=== PATIENT | male | born 1995 | race Caucasian/White ===

== ENCOUNTER 2023-03-03 06:56 | Day surgery (SDC) | payer OTHER, SELFPAY ==
[2023-03-03 07:09] VITALS: BMI 24.4
[2023-03-03 07:16] VITALS: BP 143/87; PULSE 78; RESP 17; TEMP 36.4; O2SAT 99
[2023-03-03] MEDS: LACTATED RINGERS 1,000 ML 42 ML IV (07:19)
--- NOTE | 2023-03-03 07:50 | P.HP_ITS ---
History of Present Illness History of Present Illness Date Patient Seen: 03/03/23 Time Patient Seen: 08:00 Chief complaint: SDC Narrative: I reviewed the recent office note by Jerel Ignacio. No significant changes. The patient denies chronic diarrhea. [facility] Social History household members: other Smoking Status: Never smoker Meds Home Medications and Allergies Home Medications Medication Instructions Recorded Confirmed Type finasteride 1 mg tablet 1 mg PO DAILY 03/03/23 03/03/23 History minoxidil 2.5 mg tablet 2.5 mg PO DAILY 03/03/23 03/03/23 History Allergies Allergy/AdvReac Type Severity Reaction Status Date / Time No Known Drug Allergies Allergy Verified 03/03/23 07:07 Review of Systems Review of Systems ROS: Yes All systems reviewed with the patient and are negative except as otherwise documented Exam Vital Signs (past 8 hours): - 03/03/23 07:16 Temperature 97.6 F Pulse Rate 78 Respiratory Rate 17 Blood Pressure 143/87 H Pulse Oximetry 99 Oxygen Delivery Method Room Air Oxygen Delivery Method Room Air Const General: cooperative HENMT Head: normal to inspection Eyes General: appearance normal, both eyes and all related structures Neck Neck: normal visual inspection Chest Chest: normal inspection of the chest Resp Effort & Inspection: normal respiratory effort Cardio Rate: regular rate GI Inspection: normal to inspection Skin General: no rashes or lesions noted Neuro General: patient alert and patient awake Extrem General: normal to inspection and no pedal edema Psych Appearance: grossly normal Assessment & Plan Assessment & Plan narrative: 28-year-old male with a family history of colon cancer and a remote history of rectal bleeding. He has a small amount of blood on the toilet tissue still at times. Colonoscopy is planned for.
--- NOTE | 2023-03-03 08:01 | PM.PREOP ---
Pre-operative Note Interval Note History & Physical reviewed/Exam performed by Physician: Yes Changes to H&P: No ASA Class (for procedural sedation): I
--- NOTE | 2023-03-03 08:22 | PM.OP.COLON ---
Operative Date/Time/Diagnoses Date of procedure: 03/03/23 Time of procedure: 08:23 Pre-op diagnosis: Rectal bleeding and a family history of colon cancer. Post-op diagnosis: same Procedure & Clinicians Study performed: Colonoscopy Same procedure as scheduled: Yes Indications: Rectal bleeding family history of colon cancer Surgeon: Mejia Bella Procedure Notes SCOAP/Timeout: Done Procedure in detail: After the risks and benefits were explained, written and verbal informed consent was obtained. The patient was brought into the procedure room and placed into the left lateral decubitus position. Please see anesthesia notes for sedation details. Digital rectal examination was accomplished. The scope was introduced into the patient and advanced under direct visualization to the cecum as identified by the appendiceal orifice and ileocecal valve. The scope was slowly withdrawn to carefully examine the mucosa for any defects or lesions. Comprehensive imaging was accomplished throughout the rectum including the dentate line. The colon was decompressed, the scope was then removed from the patient who tolerated the procedure well. Adult colonoscope Bowel prep adequate Scope withdrawal time: 9 minutes Sedation minutes: 15 Specimen(s): none sent Complications: none Impression: Digital rectal examination was within normal limits. No proctitis no colitis throughout. No polyps or mass lesions. The terminal ileum was interrogated and appeared normal. Endoscopic diagnosis Visually normal colonoscopy Post-procedure Plan for aftercare: Repeat colonoscopy at age 40 considering family history. Disposition: PACU
[2023-03-03 08:26] VITALS: BP 88/49; PULSE 62; RESP 16; TEMP 36.2; O2SAT 98
[2023-03-03 08:34] VITALS: BP 103/59; PULSE 66; RESP 16; O2SAT 98
[2023-03-03 08:39] VITALS: BP 108/68; PULSE 77; RESP 16; TEMP 36.2; O2SAT 98
[2023-03-03 08:41] VITALS: BP 105/77; PULSE 65; RESP 16; TEMP 36.2; O2SAT 100
== END 2023-03-03 08:49 | disposition home or self-care (01) ==
PROVIDERS: Referring Provider Internal Medicine Gastroenterology; Visit Provider Internal Medicine Gastroenterology
PROC: 0DJD8ZZ Inspection of Lower Intestinal Tract, Via Natural or Artificial Opening Endoscopic (ICD-10-PCS; CPT 45378; principal; 2023-03-03 08:00)
DX: K62.5 Hemorrhage of anus and rectum (principal); Z80.0 Family history of malignant neoplasm of digestive organs
CPT/HCPCS: 45378; J2704